=== PATIENT | female | born 1965 | race Hispanic/Latino ===

== ENCOUNTER 2021-08-01 17:43 | Emergency (ER) | payer OTHER, SELFPAY ==
[2021-08-01] MEDS ORDERED: Boostrix 0.5 ML (Tdap) VIAL ONE (19:37)
[2021-08-01] MEDS ORDERED: Doxycycline 100 MG CAP PO SCH (20:00)
== END 2021-08-01 20:42 | disposition home or self-care (01) ==
LOC: ERS 17:43
DX: L12.0 Bullous pemphigoid (principal); L03.113 Cellulitis of right upper limb
CPT/HCPCS: 90471; 90715; 99283